=== PATIENT | male | born 1990 | race Caucasian/White ===

== ENCOUNTER 2016-10-26 16:55 | Emergency (ER) | payer MEDICAID ==
[~2016-10-26] VITALS: Ht 193 cm; Wt 88.5 kg
[2016-10-26 16:57] VITALS: BP 116/73
== END 2016-10-26 17:45 | disposition home or self-care (01) ==
LOC: ED 17:00
DX: T25.211A Burn of second degree of right ankle, initial encounter (principal); T31.0 Burns involving less than 10% of body surface; X11.8XXA Contact with other hot tap-water, initial encounter; Y93.89 Activity, other specified; Y92.89 Other specified places as the place of occurrence of the external cause; Y99.8 Other external cause status
CPT/HCPCS: 99283

== ENCOUNTER 2018-09-17 06:36 | Day surgery (SDC) | payer OTHER ==
[~2018-09-17] VITALS: Ht 193 cm; Wt 86.3 kg
[2018-09-17] MEDS ORDERED: EPINEPHRINE 1 MG/ML, 1ML ONE (06:56)
[2018-09-17] MEDS ORDERED: BUPIVACAINE/PF 0.5% ONE (06:56)
[2018-09-17] MEDS ORDERED: LACTATED RINGERS 1,000 ML IV SCH (07:11)
[2018-09-17 07:29] VITALS: BP 126/77
[2018-09-17] MEDS ORDERED: NONE PER PT (07:33)
[2018-09-17] MEDS ORDERED: MIDAZOLAM 1 MG/ML, 2ML ONE (07:39)
[2018-09-17] MEDS ORDERED: FENTANYL PF 250 MCG/5ML ONE (07:39)
[2018-09-17] MEDS ORDERED: LIDOCAINE-MPF 2% ,5ML ONE (07:47)
[2018-09-17] MEDS ORDERED: ONDANSETRON 2MG/ML, 2ML ONE (07:47)
[2018-09-17] MEDS ORDERED: PROPOFOL 10 MG/ML, 20ML ONE (07:47)
[2018-09-17] MEDS ORDERED: CEFAZOLIN 1,000 MG ONE (07:47)
[2018-09-17] MEDS ORDERED: DEXAMETHASONE 4 MG/ML, 1ML ONE (07:47)
[2018-09-17] MEDS ORDERED: ACETAMINOPHEN 325 MG TABLET PO PRN (08:30)
[2018-09-17] MEDS ORDERED: MEPERIDINE/PF 25MG/0.5ML IVPush PRN (08:30)
[2018-09-17] MEDS ORDERED: PROMETHAZINE 25 MG/ML, 1ML IV PRN (08:30)
[2018-09-17] MEDS ORDERED: ONDANSETRON 2MG/ML, 2ML IV PRN (08:30)
[2018-09-17] MEDS ORDERED: ALBUTEROL SULFATE 2.5 MG/3 ML NPPB PRN (08:30)
[2018-09-17] MEDS ORDERED: OXYcodone 5 MG/5 ML ORAL.SOL UDC PO PRN (08:30)
[2018-09-17] MEDS ORDERED: ONDANSETRON ODT 8 MG PO PRN (08:30)
[2018-09-17] MEDS ORDERED: PROMETHAZINE 25 MG SUPP PR PRN (08:30)
[2018-09-17] MEDS ORDERED: FENTANYL PF 100 MCG/2ML ONE (09:16)
[2018-09-17] MEDS ORDERED: OXYcodone 5 MG/5 ML ORAL.SOL UDC ONE (09:16)
[2018-09-17] MEDS: FENTANYL PF 100 MCG/2ML IV PRN ×2 (09:22→09:38)
[2018-09-17] MEDS ORDERED: HYDROmorphone 2 MG/ML, 1ML ONE (09:39)
[2018-09-17] MEDS: HYDROmorphone 2 MG/ML, 1ML IVPush PRN ×2 (09:40→09:55)
== END 2018-09-17 11:25 | disposition home or self-care (01) ==
LOC: OR 06:36
PROVIDERS: ATTEND Surgery Vascular Surgery
DX: K40.20 Bilateral inguinal hernia, without obstruction or gangrene, not specified as recurrent (principal); Z88.0 Allergy status to penicillin
CPT/HCPCS: 49505; C1781; J0171; J0690; J1100; J1170; J2250; J2405; J2704; J3010; J7120